=== PATIENT | female | born 1995 | race Caucasian/White ===

== ENCOUNTER → 2020-01-02 11:22 | Outpatient (CLI) | payer OTHER, SELFPAY ==
[2020-01-02 16:32] LABS: Urine N gonorrhoeae NOT DETECTED
[2020-01-02 17:00] LABS: Urine Chlamydia NOT DETECTED
== END ==
PROVIDERS: Visit Provider Physician Assistant
DX: R10.2 Pelvic and perineal pain (principal); N89.8 Other specified noninflammatory disorders of vagina
CPT/HCPCS: 87210; 87491; 87591

== ENCOUNTER → 2020-01-02 12:05 | Outpatient (CLI) | payer OTHER, SELFPAY ==
[2020-01-02 13:45] LABS: HCG Quantitative /Beta subunit < 2.4 mIU/mL
[2020-01-03 04:36] LABS: HBsAg Screen Negative (Negative); Hepatitis A Antibody IgM Negative (Negative); Hepatitis B Core Antibody IgM Negative (Negative); Hepatitis C Antibody <0.1 s/co ratio (0.0-0.9)
[2020-01-03 07:08] LABS: RPR Screen Non Reactive (Non Reactive)
[2020-01-03 21:07] LABS: HSV I/II IgM 1.14 Ratio (0.00-0.90)
[2020-01-03 21:19] LABS: HIV 1 & 2 Ab/Ag 4th Gen Combo NEGATIVE (NEGATIVE)
== END ==
PROVIDERS: Referring Provider Physician Assistant; Visit Provider Physician Assistant
DX: Z11.3 Encounter for screening for infections with a predominantly sexual mode of transmission (principal); N89.8 Other specified noninflammatory disorders of vagina; R10.2 Pelvic and perineal pain
CPT/HCPCS: 36415; 80074; 84702; 86592; 86694; 87210; 87389; 87491; 87591

== ENCOUNTER → 2020-01-04 16:10 | Outpatient (CLI) | payer OTHER, SELFPAY ==
[2020-01-05 04:40] LABS: HSV Type 1 AB, IgG <0.91 index (0.00-0.90)
== END ==
PROVIDERS: Visit Provider Physician Assistant
DX: Z11.3 Encounter for screening for infections with a predominantly sexual mode of transmission (principal)
CPT/HCPCS: 86695; 86696